=== PATIENT | female | born 1980 | race Caucasian/White ===

== ENCOUNTER 2018-10-23 11:13 | Emergency (ER) | payer OTHER ==
[~2018-10-23] VITALS: Ht 162.6 cm; Wt 84.4 kg
[2018-10-23 11:24] VITALS: BP 154/109; Ht 162.6 cm; Wt 84.4 kg
== END 2018-10-23 12:28 | disposition home or self-care (01) ==
LOC: ED 11:13
DX: J20.8 Acute bronchitis due to other specified organisms (principal); I10 Essential (primary) hypertension; D63.8 Anemia in other chronic diseases classified elsewhere; G43.909 Migraine, unspecified, not intractable, without status migrainosus
CPT/HCPCS: 99406; Q0092

== ENCOUNTER 2019-03-01 02:13 | Emergency (ER) | payer OTHER ==
[~2019-03-01] VITALS: Ht 162.6 cm; Wt 84.8 kg
[2019-03-01 02:24] VITALS: Ht 162.6 cm; Wt 84.8 kg
[2019-03-01 04:58] VITALS: BP 147/76
== END 2019-03-01 04:58 | disposition home or self-care (01) ==
LOC: ED 02:13
DX: H92.01 Otalgia, right ear (principal); I10 Essential (primary) hypertension; E05.90 Thyrotoxicosis, unspecified without thyrotoxic crisis or storm; G43.909 Migraine, unspecified, not intractable, without status migrainosus; Z86.2 Personal history of diseases of the blood and blood-forming organs and certain disorders involving the immune mechanism; Z98.890 Other specified postprocedural states

== ENCOUNTER 2019-08-05 12:09 | Observation (INO) | payer OTHER ==
[~2019-08-05] VITALS: Ht 162.6 cm; Wt 86.6 kg
--- NOTE | 2019-08-05 13:12 | NUR ---
PER PT HAS HAD INTERMITTENT CHEST "BURING" FOR 3-4 DAYS. PT STS THAT SHE IS ALSO HAVING RUQ/PERIUMBILICAL PAIN FOR ONE WEEKS. PT STS THAT SHE HAS NON RADIATING CHEST "BURNING". +BOWEL SOUNDS ALL 4 QUAD. PT STS THAT SHE HAS SOME +N WITH NO VOMITING. PT STS SHE HAS HAD A TEMP, BODYA HCES. PT STS DIARRHEA. PT STS SHE IS UNABLE TO HOLD ANY FOOD OR WATER DOWN. PT STS HX GASTRITIS BUT TAKES NO MDICATION. PT STS SHE WAS AT THE ER "COUPLE OF WEEKS AGO AND THEY GAVE ME NOTHING". DR. KERN AT BEDSIDE. VSS. RESP E/U. WILL CONTINUE TO MONITOR.
--- NOTE | 2019-08-05 13:37 | NUR ---
LAB AT BEDSIDE.
[2019-08-05 14:18] LABS: BASOPHIL % 0.2 % (0-2); CALCIUM 8.7 mg/dL (8.5-10.1); CARBON DIOXIDE 25.1 mmol/L (21-32); CHLORIDE SERUM 103 mmol/L (98-107); CREATININE SERUM 0.8 mg/dL (0.6-1.0); GFR1 > 60 mL/min; GLUCOSE SERUM 91 mg/dL (74-106); POTASSIUM SERUM 4.3 mmol/L (3.5-5.1); SODIUM SERUM 136 mmol/L (136-145)
[2019-08-05 14:23] LABS: ALKALINE PHOSPHATASE 106 U/L (46-116); ALT/SGPT 53 U/L (14-59); AMYLASE 46 U/L (25-115); AST/SGOT 36 U/L (15-37); BILIRUBIN TOTAL 0.2 mg/dL (0.20-1.00); LIPASE 177 IU/L (73-393); TOTAL PROTEIN, SERUM 6.9 g/dL (6.4-8.2)
[2019-08-05 14:24] LABS: ALBUMIN 3.2 g/dL (3.4-5.0); PLATELET COUNT 449 x10^3mcL (130-400); RED CELL DISTRIBUTION WIDTH 21.6 % (11.5-14.5)
--- NOTE | 2019-08-05 14:30 | NUR ---
CRITICAL HEMOGLBIN 6.6, DR KERN NOTIFIED.
[2019-08-05 14:33] LABS: AMPHETAMINE QUAL UR POSITIVE (See below)
[2019-08-05 14:53] LABS: rbc morphology (normal/abnorm) ABNORMAL (NORMAL)
--- NOTE | 2019-08-05 16:46 | NUR ---
LAB AT BEDSIDE. PT CONSENT SIGNED TO RECEIVE RBC. VSS. RESP E/U. WILL CONTINUE TO MONITOR. PT STS SHE IS STILL HAVING ABDOMINAL PAIN AT THIS TIME WITH INTERMITTENT CHEST PAIN. DR. KERN MADE AWARE.
[2019-08-05 17:26] LABS: RED BLOOD CELLS 4.06 M/mm3 (4.10-5.10)
[2019-08-05 17:26] LABS: IRON 16 ug/dL (50-170); TOTAL IRON BINDING CAPACITY 497 ug/dL (250-450)
--- NOTE | 2019-08-05 17:29 | NUR ---
REPORT GIVEN TO CHRIS WATKINS TO ASSUME CARE OF PT.
[2019-08-05] MEDS ORDERED: NATURAL IRON65 MG PO (17:34)
[2019-08-05] MEDS ORDERED: KEPPRA500 MG PO ×2 (17:34→17:35)
[2019-08-05] MEDS ORDERED: LEVOTHYROXIN0.125 M2 PO (17:34)
[2019-08-05] MEDS ORDERED: FERROUS SULFAT325 M2 PO (17:35)
[2019-08-05] MEDS ORDERED: RANITIDINE HCL150 M1 PO (17:35)
--- NOTE | 2019-08-05 17:43 | NUR ---
CHRIS WATKINS INFORMED RBC WERE NOT GIVEN IN ER. MADE AWARE PT NEEDS RBC FROM LAB.
--- NOTE | 2019-08-05 17:50 | NUR ---
RECEIVED PT FROM ED [facility] [employer], CAME IN DUE TO CHEST AND ABDOMINAL PAIN. AAOX4. C/O 9/10 SHARP HEADACHE, DENIES DIZZINESS. ABLE TO FOLLOW COMMANDS. C/O MILD SOB, WORSE ON AMBULATION, O2 JEF=346%, RA. C/O 9/10 SHARP RIGHT SIDED CHEST PAIN, NON-RADIATING, NSR ON THE MONITOR. DENIES ABDOMINAL PAIN/NAUSEA/ VOMITING AT THIS TIME. ABDOMEN IS SOFT AND ROUND. BOWEL SOUNDS ACTIVE. HAD DIARRHEAL EPISODES SINCE THURSDAY, HAD 1 EPISODE TODAY. VOIDS. IV SITE PATENT AND INTACT. SIDE RAILS UPX2. CALL LIGHT ON REACH. WILL ENDORSE TO PRIMARY NURSE UTE FOR CONTINUITY OF CARE
[2019-08-05 17:54] VITALS: BP 114/63
[2019-08-05 18:06] VITALS: Ht 162.6 cm; Wt 86.6 kg
--- NOTE | 2019-08-05 18:42 | NUR ---
PT IS LAYING DOWN IN BED WITH HOB UP RESTING AND WATCHING TV. PT LOOKS TO BE IN NO ACUTE DISTRESS AT THIS TIME. IV SITE PATENT WITH NO SIGNS OF ERYTHEMA OR SWELLING. PT STATES LAST MENSTRUAL CYCLE WAS LAST WEEK AND STATES THAT SHE CONTINUES TO HAVE HEAVY MENSTRUAL CYCLES. RESPIRATIONS EVEN AND UNLABORED ON ROOM AIR. BED IN LOWEST POSITION, CALL LIGHT WITHIN REACH. FAMILY MEMBER AT BEDSIDE. WILL ENDORSE TO ONCMONG SHIFT.
[2019-08-05 19:17] VITALS: BP 100/50
--- NOTE | 2019-08-05 19:20 | NUR ---
REC'D REPORT FROM UTE WATKINS TO ASSUME CARE. PT A/O X4, SPEECH CLEAR AND APPROPRIATE. PERRLA NOTED. C/O 07/26 MIGRAINE HEADACHE, WILL NOTIFY . RESPS E/U ON ROOM AIR. DENIES ANY SOB. CHEST RISE EQUAL AND SYMMETRICAL. LUNG SOUNDS CTA. TELE MONITOR #[address], SHOWING NSR. DENIES ANY CP, SYNCOPE, OR DIZZINESS. ABD ROUND, SOFT, NONDISTENDED. BOWEL SOUND ACTIVE. DENIES ANY N/V. PT VOIDS FREELY WITH BRP. SKIN INTACT. AMB WITH STEADY GAIT. SKIN WARM DRY TO TOUCH. IV TO LAC INTACT AND PATENT, SL. ACTIVE ROM NOTED. ABLE TO REPOSITION SELF. ALL NEEDS MET AT THIS TIME. WILL CONTINUE TO MONITOR.
--- NOTE | 2019-08-05 20:30 | NUR ---
PAGED ORION SAUCEDO, ON-CALL MD DR HEDRICK, AWAITING FOR CALL BACK FOR C/O 06/25 HEADACHE.
--- NOTE | 2019-08-05 22:18 | NUR ---
DR HEDRICK MADE AWARE TORADOL IVP INEFFECTIVE, PTS PAIN LEVEL 9/10 THROBBING HEADACHE. ORDER GIVEN FOR PERCOCET 5/325 MG PO Q4H FOR PAIN. DR HEDRICK STATES WILL NOT ORDER ANYTHING STRONGER IF PAIN IS STILL THERE. PT MADE AWARE.
--- NOTE | 2019-08-06 02:24 | NUR ---
PT SEEN SLEEPING BUT EASILY AROUSABLE. DENIES ANY PAIN AT THIS TIME. WILL CONTINUE TO MONITOR.
[2019-08-06 04:40] VITALS: BP 119/67
[2019-08-06 06:57] LABS: CALCIUM 8.9 mg/dL (8.5-10.1); CARBON DIOXIDE 25.6 mmol/L (21-32); CHLORIDE SERUM 107 mmol/L (98-107); CREATININE SERUM 0.8 mg/dL (0.6-1.0); GFR1 > 60 mL/min; GLUCOSE SERUM 85 mg/dL (74-106); POTASSIUM SERUM 4.8 mmol/L (3.5-5.1); SODIUM SERUM 139 mmol/L (136-145)
--- NOTE | 2019-08-06 07:05 | NUR ---
SEEN IN BED AAOX4. NO RESP DISTRESS NOTED. ON TELE#14 SB HR=58. STATED HEADACHE SUBSIDED. S/L TO LAC INTACT. PLAN OF CARE INFORMED. CALL LIGHT PLACED WITHIN EASY REACH. SIDERAILS UP X2.
[2019-08-06 07:46] LABS: RED CELL DISTRIBUTION WIDTH 21.5 % (11.5-14.5)
[2019-08-06 07:47] LABS: BASOPHIL % 2.1 % (0-2); PLATELET COUNT 450 x10^3mcL (130-400)
[2019-08-06 08:35] VITALS: BP 99/51
--- NOTE | 2019-08-06 09:50 | NUR ---
FIRST PRBC VERIFIED WITH ROLAND BOWIE AT BEDSIDE, V/S STABLE. BLOOD TRANSFUSION STARTED, IV TO LAC INTACT AND PATENT.
--- NOTE | 2019-08-06 10:05 | NUR ---
NO ADVERSE REACTION NOTED. V/S STABLE BP 112/59, HR 59, RR 18 O2SAT 99% ON ROOM AIR, AFEBRILE.
[2019-08-06 13:00] VITALS: BP 97/51
--- NOTE | 2019-08-06 13:00 | NUR ---
FRIST UNIT OF PRBC COMPLETED. SEEN BY DOCTOR PHILIPPE AT BEDSIDE. NOTED NEW ORDER TO TRANSFUSE 2ND UNIT OF PRBC. PATIENT MADE AWARE PLAN OF CARE.
--- NOTE | 2019-08-06 13:12 | NUR ---
2ND UNIT OF PRBC STARTED. NO ADVERSE REACTION NOTED. VSS.
[2019-08-06 13:56] LABS: ovalocyte/elliptocyte 1+; rbc morphology (normal/abnorm) ABNORMAL (NORMAL)
--- NOTE | 2019-08-06 15:12 | NUR ---
2ND UNIT OF PRBC INFUSING AT THIS TIME. NO ADVERSE REACTION NOTED.
--- NOTE | 2019-08-06 16:54 | NUR ---
TOLERATING BLOOD TRANSFUSION WELL. NO ANY DISTRESS, NO S/S OF ADVERSE REACTION. PERCOCET GIVEN X1 FOR HEADACHE. WILL CONTINUE TO MONITOR.
[2019-08-06 16:56] VITALS: BP 116/63
--- NOTE | 2019-08-06 19:00 | NUR ---
2ND UNIT OF PRBC DONE. NO ANY ADVERSE REACTION NOTED. STATED HEADACHE SUBSIDED AFTER PERCOCET GIVEN.
[2019-08-06 19:15] VITALS: BP 104/53
--- NOTE | 2019-08-06 19:40 | NUR ---
RECEIVED PT FROM AM NURSE. PT LAYING DOWN IN BED WITH EYES CLOSED. PT AAOX4, ABLE TO MAKE NEEDS [place]. DENIES H/A AT THIS TIME. ON TELE#14 READING SR. PALPABLE PULSES TO ALL EXTREMETIES. NO EDEMA NOTED. LUNG SOUNDS CTA. BREATHING EVEN AND UNLABORED ON RA. SUZANNE CUTE DISTRESS NOTED. ABD SOFT AND NONDISTENDED. ACTIVE BS X4 QUAD. LAST B, 08/05/19. DENIES N/D/D. DENIES VAGINAL BLEEDING. VOIDS FREELY BRP. AMBULATORY. IV TO LAC SL FLUSHING WELL. SITE FREE FROM REDNESS AND SWELLING. BED AT LOWEST SETTING. SIDE RAILS X2 UP. CALL LIGHT WITHING REACH. WILL CONTINUE TO MONITOR.
--- NOTE | 2019-08-07 | NUR ---
PT LAYIND DOWN IN BED WITH EYES CLOSED. BREATHING EVEN AND UNLABORED ON RA. NO ACUTE DISTRESS NOTED. BED AT LOWEST SETTING. SIDE RAILS X2 UP. CALL LIGHT WITHING REACH. WILL CONTINUE TO MONITOR.
[2019-08-07 05:55] VITALS: BP 105/45
--- NOTE | 2019-08-07 06:10 | NUR ---
PT SLEPT AT INTERVALS THROUGHOUT THE NIGHT, BREATHING EVEN AND UNLABORED ON RA. NO SIGNIFICANT CHANGE DURING SHIFT. ALL NEEDS ASSESSED AND ATTENDED TO. NO ACUTE DISTRESS NOTED. BED AT LOWEST SETTING. SIDE RAILS X2 UP. CALL LIGHT WITHING REACH. WILL ENDORSE CARE TO AM NURSE.
[2019-08-07 07:06] LABS: CARBON DIOXIDE 24.7 mmol/L (21-32); CHLORIDE SERUM 105 mmol/L (98-107); CREATININE SERUM 0.8 mg/dL (0.6-1.0); GFR1 > 60 mL/min; GLUCOSE SERUM 81 mg/dL (74-106); MAGNESIUM 2.1 mg/dL (1.8-2.4); POTASSIUM SERUM 4.5 mmol/L (3.5-5.1); SODIUM SERUM 138 mmol/L (136-145)
--- NOTE | 2019-08-07 07:20 | NUR ---
SEEN ASLEEP, BREATHING EASY NOTED ON ROOM AIR. ON TELE#14 NSR. S/L TO LAC INTACT. CALL LIGHT PLACED WITHIN EASY REACH. SIDERAILS UP X2.
[2019-08-07 07:59] LABS: BASOPHIL % 0.8 % (0-2); PLATELET COUNT 409 x10^3mcL (130-400); RED CELL DISTRIBUTION WIDTH 26.6 % (11.5-14.5)
[2019-08-07 08:08] VITALS: BP 98/43
[2019-08-07 12:05] VITALS: BP 129/68
[2019-08-07 13:23] LABS: rbc morphology (normal/abnorm) ABNORMAL (NORMAL)
[2019-08-07 13:24] LABS: ovalocyte/elliptocyte 1+
--- NOTE | 2019-08-07 15:10 | NUR ---
DISCHARGE INSTRUCTION EXPLAINED AND GIVEN TO PATIENT WHO IS AWAKE, ALERT, ORIENTED X4. S/L TO LAC REMOVED WITH CATHETER INTACT, NO ERYTHEMA OR INFILTRATION NOTED, DRSG APPLIED. TELEMETRY RETURNED TO [place]. BROUGHT VIA WHEELCHAIR BY BUS AIDE ACCOMPANIED BY SIGNIFICANT OTHER. CONDITION STABLE UPON DISCHARGE.
== END 2019-08-07 15:19 | disposition home or self-care (01) | DRG 663 ==
LOC: ED 12:09 → DU 16:56
PROVIDERS: Emergency Medicine; Internal Medicine Pulmonary Disease; ADMIT Internal Medicine
PROC: 30233N1 Transfusion of Nonautologous Red Blood Cells into Peripheral Vein, Percutaneous Approach (ICD-10-PCS; principal; 2019-08-05)
DX: D64.9 Anemia, unspecified (principal); E03.9 Hypothyroidism, unspecified; I10 Essential (primary) hypertension; K21.9 Gastro-esophageal reflux disease without esophagitis; G40.909 Epilepsy, unspecified, not intractable, without status epilepticus; F15.10 Other stimulant abuse, uncomplicated; Z72.0 Tobacco use
CPT/HCPCS: G0378; J1885; J2405; J7030; J7040; J7042; P9016; Q0163

== ENCOUNTER 2019-09-28 22:39 | Inpatient (IN) | payer OTHER ==
[~2019-09-28] VITALS: Ht 162.6 cm; Wt 77.6 kg
[~2019-09-28 22:39] MED LIST: FERROUS SULFAT325 M2 PO; KEPPRA500 MG PO; LEVOTHYROXIN0.125 M2 PO; NATURAL IRON65 MG PO; RANITIDINE HCL150 M1 PO
[2019-09-28 22:50] VITALS: Ht 162.6 cm; Wt 77.6 kg
[2019-09-28 23:50] LABS: AMPHETAMINE QUAL UR POSITIVE (See below)
[2019-09-28 23:52] LABS: CALCIUM 9.6 mg/dL (8.5-10.1); CARBON DIOXIDE 22.4 mmol/L (21-32); CHLORIDE SERUM 102 mmol/L (98-107); CREATININE SERUM 1.1 mg/dL (0.6-1.0); GFR1 59 mL/min; GLUCOSE SERUM 109 mg/dL (74-106); POTASSIUM SERUM 4.4 mmol/L (3.5-5.1); SODIUM SERUM 138 mmol/L (136-145)
[2019-09-28 23:55] LABS: ALKALINE PHOSPHATASE 143 U/L (46-116); ALT/SGPT 22 U/L (14-59); AST/SGOT 33 U/L (15-37); BILIRUBIN TOTAL 0.4 mg/dL (0.20-1.00)
[2019-09-28 23:56] LABS: TOTAL PROTEIN, SERUM 8.3 g/dL (6.4-8.2)
[2019-09-29 00:30] LABS: BASOPHIL % 0.1 % (0-2); PLATELET COUNT 366 x10^3mcL (130-400)
[2019-09-29 00:40] LABS: RED CELL DISTRIBUTION WIDTH 27.5 % (11.5-14.5)
[2019-09-29 08:18] VITALS: BP 114/59
[2019-09-29 13:43] VITALS: BP 106/62
[2019-09-29 16:44] VITALS: BP 107/60
[2019-09-29 20:27] VITALS: BP 103/48
[2019-09-30 05:42] VITALS: BP 106/66
[2019-09-30 06:41] LABS: PLATELET COUNT 241 x10^3mcL (130-400)
[2019-09-30 07:09] LABS: ALBUMIN 2.7 g/dL (3.4-5.0); ALKALINE PHOSPHATASE 108 U/L (46-116); ALT/SGPT 20 U/L (14-59); AST/SGOT 30 U/L (15-37); BILIRUBIN TOTAL 0.2 mg/dL (0.20-1.00); CALCIUM 8.9 mg/dL (8.5-10.1); CARBON DIOXIDE 22.9 mmol/L (21-32); CHLORIDE SERUM 108 mmol/L (98-107); CREATININE SERUM 0.7 mg/dL (0.6-1.0); GFR1 > 60 mL/min; GLUCOSE SERUM 76 mg/dL (74-106); MAGNESIUM 2.2 mg/dL (1.8-2.4); POTASSIUM SERUM 4.4 mmol/L (3.5-5.1); SODIUM SERUM 139 mmol/L (136-145); TOTAL PROTEIN, SERUM 6.4 g/dL (6.4-8.2)
[2019-09-30 07:32] LABS: BASOPHIL % 3.1 % (0-2); RED CELL DISTRIBUTION WIDTH 26.9 % (11.5-14.5)
[2019-09-30 08:37] VITALS: BP 110/52
[2019-09-30] MEDS ORDERED: BACTRIM DS1 TAB PO (09:14)
[2019-09-30 10:28] VITALS: BP 110/52
== END 2019-09-30 12:46 | disposition home or self-care (01) | DRG 383 ==
LOC: ED 22:39 → MU 09-29 05:47
PROVIDERS: Emergency Medicine; ADMIT Internal Medicine Pulmonary Disease
DX: L03.115 Cellulitis of right lower limb (principal); D50.9 Iron deficiency anemia, unspecified; N93.9 Abnormal uterine and vaginal bleeding, unspecified; L03.116 Cellulitis of left lower limb; G43.909 Migraine, unspecified, not intractable, without status migrainosus; S00.31XA Abrasion of nose, initial encounter; S00.83XA Contusion of other part of head, initial encounter; E05.90 Thyrotoxicosis, unspecified without thyrotoxic crisis or storm; G40.909 Epilepsy, unspecified, not intractable, without status epilepticus; K21.9 Gastro-esophageal reflux disease without esophagitis; I10 Essential (primary) hypertension; X58.XXXA Exposure to other specified factors, initial encounter; Z59.0 Homelessness; Y93.89 Activity, other specified; Y92.89 Other specified places as the place of occurrence of the external cause; Z79.899 Other long term (current) drug therapy
CPT/HCPCS: G0378; G0480; J0696; J1644; J2405; J3370; J7030; J7060

== ENCOUNTER 2019-10-08 03:55 | Emergency (ER) | payer OTHER ==
[~2019-10-08] VITALS: Ht 162.6 cm; Wt 87.7 kg
[~2019-10-08 03:55] MED LIST changes: +BACTRIM DS1 TAB PO
[2019-10-08 04:04] VITALS: BP 131/73; Ht 162.6 cm; Wt 87.7 kg
== END 2019-10-08 05:11 | disposition left against medical advice (07) ==
LOC: ED 03:55
DX: Z53.21 Procedure and treatment not carried out due to patient leaving prior to being seen by health care provider (principal)

== ENCOUNTER 2019-12-17 15:23 | Emergency (ER) | payer OTHER ==
[~2019-12-17] VITALS: Ht 162.6 cm; Wt 79.4 kg
[2019-12-17 15:35] VITALS: Ht 162.6 cm; Wt 79.4 kg
[2019-12-17 16:31] LABS: UA SPECIFIC GRAVITY 1.025 (1.005-1.035); microscopic required? YES; urine erythrocyte TRACE (NEGATIVE)
[2019-12-17 16:38] LABS: CALCIUM 9.1 mg/dL (8.5-10.1); CHLORIDE SERUM 106 mmol/L (98-107); CREATININE SERUM 0.8 mg/dL (0.6-1.0); GFR1 > 60 mL/min; GLUCOSE SERUM 105 mg/dL (74-106); POTASSIUM SERUM 3.9 mmol/L (3.5-5.1); SODIUM SERUM 139 mmol/L (136-145)
[2019-12-17 16:40] LABS: AMPHETAMINE QUAL UR NONE DETECTED (See below)
[2019-12-17 16:52] LABS: ALKALINE PHOSPHATASE 107 U/L (46-116); ALT/SGPT 17 U/L (14-59); AST/SGOT 14 U/L (15-37); BILIRUBIN TOTAL 0.15 mg/dL (0.20-1.00); CHOLESTEROL 154 mg/dL (<200); TOTAL PROTEIN, SERUM 6.6 g/dL (6.4-8.2)
[2019-12-17 16:53] LABS: ALBUMIN 2.9 g/dL (3.4-5.0); T4(THYROXINE) 3.9 ug/dL (4.7-13.3)
[2019-12-17 17:04] LABS: PLATELET COUNT 296 x10^3mcL (130-400); RED CELL DISTRIBUTION WIDTH 18.6 % (11.5-14.5)
[2019-12-17 17:59] VITALS: BP 132/67
== END 2019-12-17 17:59 | disposition home or self-care (01) ==
LOC: ED 15:23
PROVIDERS: Emergency Medicine
DX: G62.9 Polyneuropathy, unspecified (principal); E03.9 Hypothyroidism, unspecified; D64.9 Anemia, unspecified; N93.8 Other specified abnormal uterine and vaginal bleeding; B35.1 Tinea unguium; I50.9 Heart failure, unspecified; I11.0 Hypertensive heart disease with heart failure; K21.9 Gastro-esophageal reflux disease without esophagitis
CPT/HCPCS: 36415; 83880; J1100; J1885

== ENCOUNTER 2019-12-29 13:50 | Emergency (ER) | payer OTHER ==
[~2019-12-29] VITALS: Ht 162.6 cm; Wt 84.4 kg
[2019-12-29 14:06] VITALS: BP 129/75; Ht 162.6 cm; Wt 84.4 kg
== END 2019-12-29 16:27 | disposition home or self-care (01) ==
LOC: ED 13:50
DX: I11.0 Hypertensive heart disease with heart failure (principal); I50.9 Heart failure, unspecified; E05.90 Thyrotoxicosis, unspecified without thyrotoxic crisis or storm; K21.9 Gastro-esophageal reflux disease without esophagitis; Z76.0 Encounter for issue of repeat prescription

== ENCOUNTER 2020-01-05 23:57 | Emergency (ER) | payer OTHER ==
[~2020-01-05] VITALS: Ht 162.6 cm; Wt 89.4 kg
[2020-01-06 00:06] VITALS: Ht 162.6 cm; Wt 89.4 kg
[2020-01-06 01:35] LABS: BASOPHIL % 1.1 % (0-2); PLATELET COUNT 322 x10^3mcL (130-400)
[2020-01-06 01:37] LABS: RED CELL DISTRIBUTION WIDTH 17.7 % (11.5-14.5)
[2020-01-06 01:43] LABS: CARBON DIOXIDE 24.2 mmol/L (21-32); CHLORIDE SERUM 109 mmol/L (98-107); CREATININE SERUM 0.9 mg/dL (0.6-1.0); GFR1 > 60 mL/min; GLUCOSE SERUM 88 mg/dL (74-106); POTASSIUM SERUM 4.2 mmol/L (3.5-5.1); SODIUM SERUM 142 mmol/L (136-145)
[2020-01-06 01:48] LABS: ALKALINE PHOSPHATASE 106 U/L (46-116); ALT/SGPT 93 U/L (14-59); AST/SGOT 30 U/L (15-37); BILIRUBIN TOTAL 0.1 mg/dL (0.20-1.00); LIPASE 201 IU/L (73-393); TOTAL PROTEIN, SERUM 6.9 g/dL (6.4-8.2)
[2020-01-06 01:51] LABS: ALBUMIN 3.3 g/dL (3.4-5.0)
[2020-01-06 04:46] VITALS: BP 113/64
== END 2020-01-06 04:46 | disposition home or self-care (01) ==
LOC: ED 23:57
PROVIDERS: Emergency Medicine
DX: N39.0 Urinary tract infection, site not specified (principal); D53.9 Nutritional anemia, unspecified; I11.0 Hypertensive heart disease with heart failure; I50.9 Heart failure, unspecified; E05.90 Thyrotoxicosis, unspecified without thyrotoxic crisis or storm; K21.9 Gastro-esophageal reflux disease without esophagitis; G43.909 Migraine, unspecified, not intractable, without status migrainosus
CPT/HCPCS: J1885; J2270; J2405; J3010; J7030

== ENCOUNTER 2020-01-27 14:07 | Emergency (ER) | payer OTHER ==
[~2020-01-27] VITALS: Ht 162.6 cm; Wt 91.6 kg
[2020-01-27 14:17] VITALS: Ht 162.6 cm; Wt 91.6 kg
[2020-01-27 15:00] LABS: PLATELET COUNT 265 x10^3mcL (130-400)
[2020-01-27 15:07] LABS: RED CELL DISTRIBUTION WIDTH 19.4 % (11.5-14.5)
[2020-01-27 15:12] LABS: CALCIUM 9.1 mg/dL (8.5-10.1); CARBON DIOXIDE 27.4 mmol/L (21-32); CHLORIDE SERUM 107 mmol/L (98-107); CREATININE SERUM 0.7 mg/dL (0.6-1.0); GFR1 > 60 mL/min; GLUCOSE SERUM 83 mg/dL (74-106); POTASSIUM SERUM 4.2 mmol/L (3.5-5.1); SODIUM SERUM 141 mmol/L (136-145)
[2020-01-27 15:17] LABS: ALKALINE PHOSPHATASE 97 U/L (46-116); ALT/SGPT 44 U/L (14-59); AST/SGOT 27 U/L (15-37); BILIRUBIN TOTAL 0.2 mg/dL (0.20-1.00); TOTAL PROTEIN, SERUM 6.9 g/dL (6.4-8.2)
[2020-01-27 15:21] LABS: ALBUMIN 3.3 g/dL (3.4-5.0)
[2020-01-27 17:55] VITALS: BP 123/71
== END 2020-01-27 17:40 | disposition home or self-care (01) ==
LOC: ED 14:07
PROVIDERS: Specialist
DX: R07.89 Other chest pain (principal); N63.20 Unspecified lump in the left breast, unspecified quadrant; I11.0 Hypertensive heart disease with heart failure; I50.9 Heart failure, unspecified; K21.9 Gastro-esophageal reflux disease without esophagitis; G43.909 Migraine, unspecified, not intractable, without status migrainosus; Z88.1 Allergy status to other antibiotic agents
CPT/HCPCS: 36415; 76641; Q0092

== ENCOUNTER 2020-02-12 13:27 | Emergency (ER) | payer OTHER ==
[~2020-02-12] VITALS: Ht 162.6 cm; Wt 90.3 kg
[2020-02-12 13:30] VITALS: Ht 162.6 cm; Wt 90.3 kg
[2020-02-12 16:12] VITALS: BP 137/65
== END 2020-02-12 16:12 | disposition home or self-care (01) ==
LOC: ED 13:27
DX: J98.01 Acute bronchospasm (principal); J98.11 Atelectasis; I10 Essential (primary) hypertension; E03.9 Hypothyroidism, unspecified; E78.00 Pure hypercholesterolemia, unspecified; G40.909 Epilepsy, unspecified, not intractable, without status epilepticus; I50.9 Heart failure, unspecified; G43.909 Migraine, unspecified, not intractable, without status migrainosus; E05.90 Thyrotoxicosis, unspecified without thyrotoxic crisis or storm; Z98.890 Other specified postprocedural states; Z90.89 Acquired absence of other organs; Z88.8 Allergy status to other drugs, medicaments and biological substances
CPT/HCPCS: Q0092; U0002

== ENCOUNTER 2020-02-26 20:22 | Emergency (ER) | payer OTHER ==
[~2020-02-26] VITALS: Ht 162.6 cm; Wt 81.6 kg
[2020-02-26 20:25] VITALS: Ht 162.6 cm; Wt 81.6 kg
[2020-02-26 21:18] LABS: BASOPHIL % 0.6 % (0-2)
[2020-02-26 21:19] LABS: PLATELET COUNT 406 x10^3mcL (130-400); RED CELL DISTRIBUTION WIDTH 19.8 % (11.5-14.5)
[2020-02-26 21:23] LABS: CALCIUM 9.3 mg/dL (8.5-10.1); CARBON DIOXIDE 30.4 mmol/L (21-32); CREATININE SERUM 1.3 mg/dL (0.6-1.0); POTASSIUM SERUM 5.1 mmol/L (3.5-5.1)
[2020-02-26 21:28] LABS: ALBUMIN 3.6 g/dL (3.4-5.0); BILIRUBIN TOTAL 0.2 mg/dL (0.20-1.00); TOTAL PROTEIN, SERUM 6.7 g/dL (6.4-8.2)
[2020-02-26 21:45] VITALS: BP 116/62
== END 2020-02-26 21:45 | disposition home or self-care (01) ==
LOC: ED 20:22
PROVIDERS: Emergency Medicine
DX: K52.9 Noninfective gastroenteritis and colitis, unspecified (principal); N39.0 Urinary tract infection, site not specified; I11.0 Hypertensive heart disease with heart failure; I50.9 Heart failure, unspecified; E05.90 Thyrotoxicosis, unspecified without thyrotoxic crisis or storm; K21.9 Gastro-esophageal reflux disease without esophagitis; Z86.2 Personal history of diseases of the blood and blood-forming organs and certain disorders involving the immune mechanism; Z98.890 Other specified postprocedural states; Z90.89 Acquired absence of other organs; Z88.8 Allergy status to other drugs, medicaments and biological substances
CPT/HCPCS: J2270; J2405; J7030

== ENCOUNTER 2020-03-14 21:25 | Emergency (ER) | payer OTHER ==
[~2020-03-14] VITALS: Ht 162.6 cm; Wt 93.4 kg
[2020-03-14 21:30] VITALS: Ht 162.6 cm; Wt 93.4 kg
[2020-03-14 23:35] VITALS: BP 125/77
== END 2020-03-14 23:35 | disposition home or self-care (01) ==
LOC: ED 21:25
DX: S09.8XXA Other specified injuries of head, initial encounter (principal); J45.909 Unspecified asthma, uncomplicated; I11.0 Hypertensive heart disease with heart failure; I50.9 Heart failure, unspecified; E05.90 Thyrotoxicosis, unspecified without thyrotoxic crisis or storm; K21.9 Gastro-esophageal reflux disease without esophagitis; G43.909 Migraine, unspecified, not intractable, without status migrainosus; Z98.890 Other specified postprocedural states; Z88.8 Allergy status to other drugs, medicaments and biological substances; Z90.89 Acquired absence of other organs; W01.0XXA Fall on same level from slipping, tripping and stumbling without subsequent striking against object, initial encounter; Y93.89 Activity, other specified; Y92.89 Other specified places as the place of occurrence of the external cause; Y99.8 Other external cause status

== ENCOUNTER 2020-03-23 22:45 | Emergency (ER) | payer OTHER ==
[~2020-03-23] VITALS: Ht 162.6 cm; Wt 90.7 kg
[2020-03-23 22:48] VITALS: Ht 162.6 cm; Wt 90.7 kg
[2020-03-23 23:43] LABS: microscopic required? YES; urine erythrocyte 3+ (NEGATIVE)
[2020-03-24 01:07] LABS: BASOPHIL % 0.6 % (0-2); PLATELET COUNT 287 x10^3mcL (130-400); RED CELL DISTRIBUTION WIDTH 18.8 % (11.5-14.5)
[2020-03-24 01:27] LABS: ALKALINE PHOSPHATASE 86 U/L (46-116); ALT/SGPT 69 U/L (14-59); AST/SGOT 46 U/L (15-37); BILIRUBIN TOTAL 0.1 mg/dL (0.20-1.00); CALCIUM 9.5 mg/dL (8.5-10.1); CHLORIDE SERUM 107 mmol/L (98-107); CREATININE SERUM 0.9 mg/dL (0.6-1.0); GFR1 > 60 mL/min; GLUCOSE SERUM 98 mg/dL (74-106); LIPASE 213 IU/L (73-393); SODIUM SERUM 143 mmol/L (136-145); TOTAL PROTEIN, SERUM 6.6 g/dL (6.4-8.2)
[2020-03-24 01:28] LABS: ALBUMIN 3.2 g/dL (3.4-5.0)
[2020-03-24 03:10] VITALS: BP 131/54
== END 2020-03-24 03:10 | disposition home or self-care (01) ==
LOC: ED 22:45
PROVIDERS: Emergency Medicine
DX: K52.9 Noninfective gastroenteritis and colitis, unspecified (principal); I11.0 Hypertensive heart disease with heart failure; I50.9 Heart failure, unspecified; K21.9 Gastro-esophageal reflux disease without esophagitis; G43.909 Migraine, unspecified, not intractable, without status migrainosus; Z88.1 Allergy status to other antibiotic agents
CPT/HCPCS: 36415; J1885

== ENCOUNTER 2020-03-30 17:27 | Emergency (ER) | payer OTHER ==
[~2020-03-30] VITALS: Ht 162.6 cm; Wt 94.8 kg
[2020-03-30 17:33] VITALS: Ht 162.6 cm; Wt 94.8 kg
[2020-03-30 18:29] LABS: BASOPHIL % 1.1 % (0-2); PLATELET COUNT 355 x10^3mcL (130-400); RED CELL DISTRIBUTION WIDTH 18.4 % (11.5-14.5)
[2020-03-30 18:46] LABS: microscopic required? NO
[2020-03-30 18:51] LABS: ALBUMIN 3.6 g/dL (3.4-5.0); ALKALINE PHOSPHATASE 101 U/L (46-116); ALT/SGPT 72 U/L (14-59); AST/SGOT 38 U/L (15-37); BILIRUBIN TOTAL 0.2 mg/dL (0.20-1.00); CARBON DIOXIDE 25.3 mmol/L (21-32); CHLORIDE SERUM 104 mmol/L (98-107); GFR1 > 60 mL/min; GLUCOSE SERUM 105 mg/dL (74-106); LIPASE 233 IU/L (73-393); POTASSIUM SERUM 3.8 mmol/L (3.5-5.1); SODIUM SERUM 140 mmol/L (136-145); TOTAL PROTEIN, SERUM 7.2 g/dL (6.4-8.2)
[2020-03-30 18:54] LABS: urine erythrocyte NEGATIVE (NEGATIVE)
[2020-03-30 18:59] LABS: CALCIUM 9.7 mg/dL (8.5-10.1)
[2020-03-30 20:26] VITALS: BP 125/71
== END 2020-03-30 20:26 | disposition home or self-care (01) ==
LOC: ED 17:27
PROVIDERS: Emergency Medicine
DX: D64.9 Anemia, unspecified (principal); R10.84 Generalized abdominal pain; R19.7 Diarrhea, unspecified; J45.909 Unspecified asthma, uncomplicated; I50.9 Heart failure, unspecified; I10 Essential (primary) hypertension; E05.90 Thyrotoxicosis, unspecified without thyrotoxic crisis or storm; Z90.89 Acquired absence of other organs; Z98.890 Other specified postprocedural states
CPT/HCPCS: 36415; J0500; J1885

== ENCOUNTER 2020-05-27 09:14 | Emergency (ER) | payer OTHER ==
[~2020-05-27] VITALS: Ht 162.6 cm; Wt 98.9 kg
[2020-05-27 09:22] VITALS: Ht 162.6 cm; Wt 98.9 kg
[2020-05-27 11:26] VITALS: BP 110/70
== END 2020-05-27 11:26 | disposition home or self-care (01) ==
LOC: ED 09:14
DX: G43.909 Migraine, unspecified, not intractable, without status migrainosus (principal); J45.909 Unspecified asthma, uncomplicated; I10 Essential (primary) hypertension; I50.9 Heart failure, unspecified; E03.9 Hypothyroidism, unspecified; K21.9 Gastro-esophageal reflux disease without esophagitis; Z90.89 Acquired absence of other organs; Z98.890 Other specified postprocedural states
CPT/HCPCS: J0780; J3010

== ENCOUNTER 2020-06-05 19:52 | Emergency (ER) | payer OTHER ==
[~2020-06-05] VITALS: Ht 162.6 cm; Wt 97.5 kg
[2020-06-05 20:05] VITALS: Ht 162.6 cm; Wt 97.5 kg
[2020-06-05 21:00] LABS: BASOPHIL % 1.1 % (0-2); PLATELET COUNT 379 x10^3mcL (130-400)
[2020-06-05 21:05] LABS: RED CELL DISTRIBUTION WIDTH 20.7 % (11.5-14.5)
[2020-06-05 21:12] LABS: CALCIUM 10.1 mg/dL (8.5-10.1); CARBON DIOXIDE 25.2 mmol/L (21-32); CREATININE SERUM 1.3 mg/dL (0.6-1.0); POTASSIUM SERUM 3.5 mmol/L (3.5-5.1)
[2020-06-05 21:23] LABS: rbc morphology (normal/abnorm) ABNORMAL (NORMAL)
[2020-06-05 21:28] LABS: ALBUMIN 4.2 g/dL (3.4-5.0); BILIRUBIN TOTAL 0.22 mg/dL (0.20-1.00); TOTAL PROTEIN, SERUM 8.1 g/dL (6.4-8.2)
[2020-06-05 21:35] VITALS: BP 153/86
== END 2020-06-05 21:35 | disposition home or self-care (01) ==
LOC: ED 19:52
PROVIDERS: Specialist
DX: D53.9 Nutritional anemia, unspecified (principal); M54.31 Sciatica, right side; I11.0 Hypertensive heart disease with heart failure; I50.9 Heart failure, unspecified; J45.909 Unspecified asthma, uncomplicated; E03.9 Hypothyroidism, unspecified; K21.9 Gastro-esophageal reflux disease without esophagitis; G43.909 Migraine, unspecified, not intractable, without status migrainosus; F15.10 Other stimulant abuse, uncomplicated; E78.00 Pure hypercholesterolemia, unspecified; Z90.89 Acquired absence of other organs; Z98.890 Other specified postprocedural states

== ENCOUNTER 2020-06-22 00:46 | Emergency (ER) | payer OTHER, SELFPAY ==
[~2020-06-22] VITALS: Ht 162.6 cm; Wt 93.9 kg
[2020-06-22 00:49] VITALS: Ht 162.6 cm; Wt 93.9 kg
[2020-06-22 02:38] VITALS: BP 135/63
== END 2020-06-22 02:37 | disposition home or self-care (01) ==
LOC: ED 00:46
DX: A05.9 Bacterial foodborne intoxication, unspecified (principal); I11.0 Hypertensive heart disease with heart failure; I50.9 Heart failure, unspecified; K21.9 Gastro-esophageal reflux disease without esophagitis; G43.909 Migraine, unspecified, not intractable, without status migrainosus; E78.00 Pure hypercholesterolemia, unspecified; Z90.89 Acquired absence of other organs
CPT/HCPCS: J2405

== ENCOUNTER 2020-10-13 05:11 | Emergency (ER) | payer OTHER ==
[~2020-10-13] VITALS: Ht 162.6 cm; Wt 98.4 kg
[2020-10-13 05:30] VITALS: Ht 162.6 cm; Wt 98.4 kg
[2020-10-13 06:52] VITALS: BP 124/67
== END 2020-10-13 06:52 | disposition home or self-care (01) ==
LOC: ED 05:11
DX: F41.0 Panic disorder [episodic paroxysmal anxiety] (principal); I10 Essential (primary) hypertension; G40.909 Epilepsy, unspecified, not intractable, without status epilepticus; E78.00 Pure hypercholesterolemia, unspecified; E03.9 Hypothyroidism, unspecified; E66.9 Obesity, unspecified; Z68.37 Body mass index [BMI] 37.0-37.9, adult
CPT/HCPCS: Q0177

== ENCOUNTER 2020-11-15 14:51 | Emergency (ER) | payer OTHER | END 2020-11-15 15:28 | disposition left against medical advice (07) | LOC: ED 14:51 | DX: Z53.21 Procedure and treatment not carried out due to patient leaving prior to being seen by health care provider (principal) ==